=== PATIENT | male | born 1960 | race Caucasian/White ===

== ENCOUNTER 2016-07-20 14:04 | Emergency (ER) | payer BC ==
[~2016-07-20] VITALS: Ht 175.3 cm; Wt 99.2 kg
[2016-07-20 14:53] LABS: EOSINOPHIL (%) 1.6 % (0-5); EOSINOPHIL COUNT 0.1 K/uL (0-0.3); IMMATURE GRANULOCYTE (%) 0.3 % (0.0-0.7); IMMATURE GRANULOCYTE COUNT 0.2 K/uL; LYMPHOCYTE COUNT 1.7 K/uL (1.0-2.8); MCH 26.5 PG (29.0-34.0); MCHC 33.4 G/DL (30.0-36.0); MCV 79.2 FL (86-99); MEAN PLAT.VOLUME 9.5 uM^3 (9.0-12.4); MONOCYTE COUNT 0.6 K/uL (0-0.8); NEUTROPHIL (%) 67.8 % (45-76); NEUTROPHIL COUNT 5.2 K/uL (1.8-6.4); PLATELET COUNT 316 K/uL (156-360); RBC DIS.WIDTH-CV 15.6 % (11.8-14.6); RBC DIS.WIDTH-SD 44.3 % (39-53); RED BLOOD COUNT 4.42 M/uL (4.00-5.50); WHITE BLOOD COUNT 7.7 K/uL (4.1-10.2)
[2016-07-20 15:08] LABS: CHLORIDE 111 mEq/L (99-109); POTASSIUM 3.9 mEq/L (3.7-5.4); SODIUM 143 mEq/L (136-147)
[2016-07-20 15:10] LABS: GLUCOSE 163 mg/dL (70-99)
[2016-07-20 15:12] LABS: ANION GAP 8 MEQ/L (2-14); TOTAL BILIRUBIN 0.1 mg/dL (0.0-1.0); TROP-I INTERPRETATION NEGATIVE; TROPONIN-I < 0.01 ng/mL (0.0-0.30)
[2016-07-20 15:14] LABS: ALKALINE PHOSPHATASE 55 IU/L (3-129); GFR ESTIMATE (CALCULATED) > 59 mL/min/
[2016-07-20 15:15] LABS: UREA NITROGEN (BUN) 18 mg/dL (9-23)
[2016-07-20 15:17] LABS: LIPASE 22 U/L (1.0-51.0)
[2016-07-20 15:25] LABS: ADD MIUA? NO; BILIRUBIN NEGATIVE; BLOOD NEGATIVE; COLOR YELLOW ((YELLOW)); GLUCOSE (STRIP) >=500; KETONES 5; LEUKOCYTES NEGATIVE; NITRITE NEGATIVE; PROTEIN (STRIP) NEGATIVE; SPECIFIC GRAVITY 1.024 (1.000-1.030); UCUL ADDED? NO; UROBILINOGEN 0.2 MG/DL (0.2-1.0)
[2016-07-20] MEDS ORDERED: ROSUVASTATIN CA10 MG PO (16:26)
[2016-07-20] MEDS ORDERED: PANTOPRAZOLE SO40 MG PO (16:27)
[2016-07-20] MEDS ORDERED: FENOFIBRATE145 M1 PO (16:27)
[2016-07-20] MEDS ORDERED: METOPROLOL SUCC50 MG PO (16:27)
[2016-07-20 16:41] VITALS: BP 125/71
== END 2016-07-20 16:43 | disposition home or self-care (01) ==
LOC: EME 14:04
PROVIDERS: Emergency Medicine
DX: R23.2 Flushing (principal); Z95.1 Presence of aortocoronary bypass graft; R42 Dizziness and giddiness; R10.9 Unspecified abdominal pain; Z95.4 Presence of other heart-valve replacement; F17.200 Nicotine dependence, unspecified, uncomplicated
CPT/HCPCS: 71020; 80053; 81003; 83690; 84484; 85025; 93005; 99281; 99284